=== PATIENT | male | born 1960 | race Caucasian/White ===

== ENCOUNTER 2019-08-15 13:22 | Emergency (ER) | payer BC ==
[~2019-08-15] VITALS: Ht 180.3 cm; Wt 69.4 kg
[2019-08-15 13:35] VITALS: Ht 180.3 cm; Wt 69.4 kg
[2019-08-15 14:48] LABS: BASOPHIL % 0.5 % (0-2); PLATELET COUNT 247 x10^3mcL (130-400); RED CELL DISTRIBUTION WIDTH 13.2 % (11.5-14.5)
[2019-08-15 14:55] LABS: CALCIUM 8.4 mg/dL (8.5-10.1); CARBON DIOXIDE 22.1 mmol/L (21-32); CHLORIDE SERUM 104 mmol/L (98-107); GFR1 > 60 mL/min; GLUCOSE SERUM 104 mg/dL (74-106); POTASSIUM SERUM 3.9 mmol/L (3.5-5.1); SODIUM SERUM 138 mmol/L (136-145)
[2019-08-15 14:59] LABS: ALBUMIN 4.3 g/dL (3.4-5.0); ALKALINE PHOSPHATASE 71 U/L (46-116); ALT/SGPT 31 U/L (16-63); AST/SGOT 21 U/L (15-37); BILIRUBIN TOTAL 1.4 mg/dL (0.20-1.00); CHOLESTEROL 169 mg/dL (<200); PHOSPHOROUS 1.8 mg/dL (2.5-4.9); TOTAL PROTEIN, SERUM 7.7 g/dL (6.4-8.2); URIC ACID 7.2 mg/dL (3.5-7.2)
[2019-08-15 15:05] LABS: HDL CHOLESTEROL 86 mg/dL (40-60)
[2019-08-15 16:27] VITALS: BP 148/84
== END 2019-08-15 16:27 | disposition home or self-care (01) ==
LOC: ED 13:22
PROVIDERS: Emergency Medicine
DX: S01.01XA Laceration without foreign body of scalp, initial encounter (principal); R55 Syncope and collapse; W22.03XA Walked into furniture, initial encounter; Y93.89 Activity, other specified; Y92.89 Other specified places as the place of occurrence of the external cause; Y99.8 Other external cause status
CPT/HCPCS: 36415; Q0092

== ENCOUNTER 2019-08-23 10:58 | Emergency (ER) | payer OTHER ==
[~2019-08-23] VITALS: Ht 180.3 cm; Wt 68.0 kg
[2019-08-23 11:10] VITALS: Ht 180.3 cm; Wt 68.0 kg
[2019-08-23 13:32] VITALS: BP 163/103
== END 2019-08-23 13:32 | disposition home or self-care (01) ==
LOC: ED 10:58
DX: S01.01XD Laceration without foreign body of scalp, subsequent encounter (principal); X58.XXXD Exposure to other specified factors, subsequent encounter; I10 Essential (primary) hypertension